=== PATIENT | male | born 1995 ===

== ENCOUNTER 2016-12-12 13:22 | Inpatient (IN) | payer OTHER ==
[2016-12-12 14:23] LABS: BASO % 0.5 % (0.0-2.0); EOS % 0.5 % (0.0-4.0); HEMATOCRIT 42.1 % (35.0-51.0); LYMPH # 0.4 K/uL (1.0-4.3); LYMPH % 5.2 % (20.0-40.0); MEAN CELL VOLUME 84.2 fL (80.0-94.0); MEAN CORPUSCULAR HEMOGLOBIN 28.1 pg (27.0-31.0); MEAN CORPUSCULAR HGB CONC 33.4 g/dL (33.0-37.0); MEAN PLATELET VOLUME 8.8 fL (7.2-11.7); MONO # 0.5 K/uL (0.0-0.8); MONO % 6.3 % (0.0-10.0); PLATELET COUNT 173 K/uL (130-400); RED CELL DISTRIBUTION WIDTH 13.4 % (11.5-14.5); WHITE BLOOD COUNT 7.4 K/uL (4.8-10.8)
[2016-12-12 14:25] LABS: CHLORIDE 99 mmol/L (98-107); SODIUM 142 mmol/L (132-148)
[2016-12-12 14:26] LABS: POTASSIUM 3.7 mmol/L (3.6-5.2)
[2016-12-12 14:28] LABS: ALB/GLOB RATIO 1.3 (1.0-2.1); ALKALINE PHOSPHATASE 59 U/L (38-126); ALT/SGPT 28 U/L (21-72); AST/SGOT 24 U/L (17-59); BILIRUBIN,TOTAL 0.7 mg/dL (0.2-1.3); BLOOD UREA NITROGEN 10 mg/dL (9-20); CARBON DIOXIDE 27 mmol/L (22-30); GFR AFRICAN-AMERICAN > 60; GLUCOSE,RANDOM 80 mg/dL (75-110); TOTAL PROTEIN 7.9 g/dL (6.3-8.3)
[2016-12-12 14:29] LABS: ALCOHOL SERUM < 10 mg/dl (0-10); CALCIUM 9.5 mg/dl (8.6-10.4); RBC URINE < 1 /hpf (0-3); URINE BILIRUBIN NEGATIVE (NEGATIVE); URINE BLOOD NEGATIVE (NEGATIVE); URINE COLOR Yellow (YELLOW); URINE GLUCOSE (UA) NORMAL (Normal); URINE KETONE TRACE mg/dL (NEGATIVE); URINE LEUKOCYTE ESTERASE NEG Leu/uL (Negative); URINE PROTEIN NEGATIVE (NEGATIVE); WBC URINE 1 /hpf (0-5)
[2016-12-12 14:49] LABS: NEUTROPHIL 89 % (50-75); TOTAL CELLS COUNTED 100
[2016-12-12 16:47] VITALS: O2SAT 100
--- NOTE | 2016-12-12 17:06 | PCM.BM ---
<Petra Sears - Last Filed: 12/12/16 17:06> Treatment Plan Problems - Problems identified on initial assessmt Suicidal Ideation Date Initiated: 12/12/16 Time Initiated: 17:30 Assessment reference: NA Status: Active Depression Date Initiated: 12/12/16 Time Initiated: 17:30 Assessment reference: NA Status: Active Treatment assets and liabiliti Patient Assests: cooperative, negotiates basic needs Patient Liabilities: substance abuse - Milieu Protocol Maintain good personal hygiene: daily Encourage regular showers, daily Remind patient to perform daily oral care Conduct patient checks and document Observation sheet: Q15 minutes Maintain personal safety: every shift Educate patient to report safety concerns to staff, every shift Monitor environment for contraband/sharps Medication safety: Monitor for expected outcome, potential side effects: every shift, Assess barriers to learning: every shift, Assess readiness for medication education: every shift <Kim Olivier - Last Filed: 12/13/16 11:01> Family Contact Family involvement: Family/SO is involved Family contact: Patient agrees to contact Family contact name: Aziza- Family contacted how many times per week?: 1 - Goals for Treatment Patient goals for treatment: "I guess I'll see a psychiatrist outpatient." Discharge/Continuing Care - Education Needs Education Needs: Patient Medication, Patient Coping Skills - Discharge Discharge Criteria: Tolerates medication w/o severe side effects, Free of Suicidal thoughts Discharge to:: Home, With Family - Treatment Team Participation Discussed with Family/SO: Yes Was Patient/Family/SO present at Treatment Team Meeting: Yes <Syed Stanley - Last Filed: 12/13/16 11:07> - Diagnosis (1) Bipolar disorder, curr episode mixed, severe, w/o psychotic features Status: Acute Interventions: 12/13/16 11:06 * Assess/adjust medications daily and /or as needed * See patient on an individual basis 7x/week to assess level of manic behaviors and stability * Discuss risks, benefits, side effects and alternatives of medications (2) Cannabis use disorder, moderate, dependence Status: Acute Interventions: 12/13/16 11:07 * Assess 7x/week regarding severity of withdrawal * Educate regarding risks, benefits, side effects and alternatives of medications * Use Motivational Interviewing for abstinence * Use CBT for relapse prevention * Medication management for withdrawal symptoms * Encourage medication assisted treatment
--- NOTE | 2016-12-12 17:31 | C.PDOC ---
History Of Present Illness 21 yr old male brought in via PD and EMS, presents to the ER after attempting suicide by warping a cord around his neck, hitting himself in the head with glass and cutting his left forearm. In ED, patient is calm and cooperative. States he had an argument with his son mom. Patient is accompanied by mom, Currently, patient denies SI, HI, visual or auditory hallucinations, chest pain , SOB, nausea or vomiting. Time Seen by Provider: 12/12/16 13:55 Chief Complaint (Nursing): Psychiatric Evaluation History Per: Patient, Family (Mom) History/Exam Limitations: no limitations Onset/Duration Of Symptoms: Sudden Onset Current Symptoms Are (Timing): Still Present Suicide/Self Injury Attempted (Context): Cut Wrists Past Medical History Reviewed: Historical Data, Nursing Documentation, Vital Signs Vital Signs: Last Vital Signs Temp 99.6 F 12/12/16 16:47 Pulse 80 12/12/16 16:47 Resp 18 12/12/16 16:47 BP 114/71 12/12/16 16:47 Pulse Ox 100 12/12/16 17:34 Family History: States: No Known Family Hx - Social History Hx Alcohol Use: No Hx Substance Use: No - Immunization History Hx Tetanus Toxoid Vaccination: Yes Hx Influenza Vaccination: No Hx Pneumococcal Vaccination: No Review Of Systems Except As Marked, All Systems Reviewed And Found Negative. Cardiovascular: Negative for: Chest Pain Respiratory: Negative for: Shortness of Breath Gastrointestinal: Negative for: Nausea, Vomiting Physical Exam - Physical Exam Appears: Non-toxic, No Acute Distress Skin: Warm, Dry, Other ((+) Abrasion to the superior aspect of the forehead, no FB. 2 superfical lacerations to the anterior forearm. ) Head: Atraumatic, Normacephalic Oral Mucosa: Moist Chest: Symmetrical, No Tenderness Cardiovascular: Rhythm Regular, No Murmur Respiratory: Normal Breath Sounds, No Rales, No Rhonchi, No Wheezing Extremity: Normal ROM, No Swelling Neurological/Psych: Oriented x3, Normal Speech, Normal Motor ED Course And Treatment - Laboratory Results Result Diagrams: 12/12/16 14:07 12/12/16 14:07 O2 Sat by Pulse Oximetry: 100 (RA ) Pulse Ox Interpretation: Normal Medical Decision Making Medical Decision Making: PLAN: * Alcohol Serum * Drug Screen * CBC * CMP * Urinalysis Disposition - Disposition Disposition: HOSPITALIZED Disposition Time: :00 Condition: GOOD - Clinical Impression Clinical Impression: Depression - Scribe Statement The provider has reviewed the documentation as recorded by the Adinibe Mar Calderon Provider Attestation: All medical record entries made by the Adinibe were at my direction and personally dictated by me. I have reviewed the chart and agree that the record accurately reflects my personal performance of the history, physical exam, medical decision making, and the department course for this patient. I have also personally directed, reviewed, and agree with the discharge instructions and disposition.
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
[2016-12-13] MEDS ORDERED: Divalproex 250 mg DR Tab PO STA (12:34)
[2016-12-13] MEDS ORDERED: Divalproex 250 mg DR Tab PO SCH (18:00)
--- NOTE | 2016-12-14 09:33 | PCM.PYCHPN ---
Psychiatric Progress Note - Psychiatric Progress Note Patient seen today, length of contact: 17 min Patient Chief Complaint: I was mad.' Problems Identified/Issues Discussed: Patient seen and evaluated, chart reviewed and discussed with the nurse. Patient remained irritable and agitated. He still reports racing of thoughts and flight of ideas. However, Patient says he is taking his medications and that they are helping. Patient had an incident today morning where he got mad at the cold coffee and threw the cup of coffee at the floor. He remained agitated however, he was redirect able afterwards. He denies any AVH or any withdrawal symptoms. He still reports poor sleep. Supportive therapy and psychoeducation were given. Medication Change: Yes (increase depakote) Medical Record Reviewed: Yes Mental Status Examination - Cognitive Function Orientation: Person, Place, Situation, Time Memory: Intact Attention: WNL Concentration: Poor Association: WNL Fund of Knowledge: Poor - Mood Mood: Depressed, Anxious - Affect Affect: Broad - Speech Speech: Loud, Pressured - Formal Thought Process Formal Thought Process: Flight of ideas - Suicidal Ideation Suicidal Ideation: No - Homicidal Ideation Homicidal Ideation: No Goal/Treatment Plan - Goal/Treatment Plan Need for Continued Stay: Discharge may exacerbated symptoms, Severe functional impairment Progress Toward Problem(s) and Goals/Treatment Plan: Bipolar disorder mixed severe without psychotic features CBT Psychoeducation Supportive therapy, group therapy, individual therapy Increase Depakote to 500 mg twice a day Neurontin 300 mg by mouth 3 times a day Trazodone 100 mg by mouth daily at bedtime Increase Klonopin 1 mg po BID Start Haldol 5 mg PO BID Cannabis use disorder severe CBT Psychoeducation Supportive therapy, individual therapy Use [place] for abstinence - Smoking Cessation Smoking Cessation Initiated: No
[2016-12-14] MEDS: Divalproex 250 mg DR Tab PO SCH ×2 (10:04→18:01)
[2016-12-15 06:50] VITALS: RESP 18
[2016-12-15] MEDS: Divalproex 250 mg DR Tab PO SCH ×2 (09:54→17:52)
--- NOTE | 2016-12-15 10:22 | PCM.PYCHPN ---
Psychiatric Progress Note - Psychiatric Progress Note Patient seen today, length of contact: 17 min Patient Chief Complaint: I am feeling better' Problems Identified/Issues Discussed: Patient seen and evaluated, chart reviewed and discussed with the nurse. Patient reports improvement in his mood but still reports somewhat irritability and agitation. However, he denies any feelings of hopelessness and helplessness and denies any auditory or visual hallucinations. He is taking medication and denies any side effects. He needs more time for stabilization. Supportive therapy and psychoeducation were given. Medication Change: Yes (increase depakote) Medical Record Reviewed: Yes Mental Status Examination - Cognitive Function Orientation: Person, Place, Situation, Time Memory: Intact Attention: WNL Concentration: Poor Association: WNL Fund of Knowledge: Poor - Mood Mood: Depressed, Anxious - Affect Affect: Broad - Speech Speech: Loud, Pressured - Formal Thought Process Formal Thought Process: Flight of ideas - Suicidal Ideation Suicidal Ideation: No - Homicidal Ideation Homicidal Ideation: No Goal/Treatment Plan - Goal/Treatment Plan Need for Continued Stay: Discharge may exacerbated symptoms, Severe functional impairment Progress Toward Problem(s) and Goals/Treatment Plan: Bipolar disorder mixed severe without psychotic features CBT Psychoeducation Supportive therapy, group therapy, individual therapy Increase Depakote to 500 mg twice a day Neurontin 300 mg by mouth 3 times a day Trazodone 100 mg by mouth daily at bedtime Increase Klonopin 1 mg po BID Start Haldol 5 mg PO BID Cannabis use disorder severe CBT Psychoeducation Supportive therapy, individual therapy Use [place] for abstinence - Smoking Cessation Smoking Cessation Initiated: No
[2016-12-16 08:23] VITALS: BP 122/75; PULSE 87; TEMP 97.9
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
== END 2016-12-16 10:00 | disposition home or self-care (01) | DRG 430 ==
LOC: C.ER 13:22 → C.5E 15:58
PROVIDERS: ADMIT Psychiatry & Neurology Psychiatry; ATTEND Psychiatry & Neurology Psychiatry
DX: F31.63 Bipolar disorder, current episode mixed, severe, without psychotic features (principal); F12.20 Cannabis dependence, uncomplicated; F17.210 Nicotine dependence, cigarettes, uncomplicated